=== PATIENT | male | born 1985 | race Caucasian/White ===

== ENCOUNTER 2019-01-14 04:33 | Emergency (ER) | payer OTHER ==
[~2019-01-14] VITALS: Ht 182.9 cm; Wt 81.2 kg
[2019-01-14 04:40] VITALS: BP 137/78
--- NOTE | 2019-01-14 04:40 | NUR ---
TO BED # 08 AMBULATORY , REPORT GIVEN TO MATHEW BUTT
--- NOTE | 2019-01-14 04:53 | NUR ---
33/M PRESENTS TO ED, C/O SOB X30 MINS WHILE DRIVING ON THE WAY TO WORK. PT STATED HE WAS DX PNA LAST WEEK, FINISHED RX Z-PACK. PT REPORTS NONPRODUCTIVE DRY COUGH. REPORTS NAUSEA, CHILLS, AND INSOMNIA. DENIES FEVER OR VOMITING. AOX4, GCS 15, SKIN NORMAL DRY AND INTACT, LUNG SOUNDS CLEAR BL. DENIES MED HX OR RX. OTC NYQUIL.
--- NOTE | 2019-01-14 04:53 | NUR ---
SPO2 98%, RR 18 EVEN AND SLIGHTLY LABORED, UNABLE TO SPEAK FULL SENTENCES. REPORTS L PLEURITIC CHEST PRESSURE RADIATING TO L UPPER BACK.
[2019-01-14] MEDS ORDERED: NACL 0.9% 1,000 ML IV ONE (05:20)
[2019-01-14] MEDS ORDERED: PIPERACILLIN/TAZOBACTAM 3.375 GM in DEXTROSE 5% 50 ML IV ONE (05:20)
[2019-01-14 05:24] LABS: BASOPHILS # (AUTO) 0.1 K/uL (0.00-0.22); BASOPHILS % (AUTO) 0.6 % (0.0-2.0); EOSINOPHILS # (AUTO) 0.8 K/uL (0-0.4); HEMATOCRIT 40.6 % (36-52); HEMOGLOBIN 13.5 g/dL (12.0-18.0); LYMPHOCYTES # (AUTO) 2.2 K/uL (2.0-11.5); LYMPHOCYTES % (AUTO) 17.2 % (20.5-51.1); MEAN CORPUSCULAR HEMOGLOBIN 29 pg (27-31); MEAN CORPUSCULAR HGB CONC 33 g/dL (33-37); MEAN CORPUSCULAR VOLUME 85.5 fL (80-94); MONOCYTES # (AUTO) 0.8 K/uL (0.8-1.0); MONOCYTES % (AUTO) 6.3 % (1.7-9.3); NEUTROPHILS # (AUTO) 8.8 K/uL (1.8-7.7); NEUTROPHILS % (AUTO) 69.9 % (42.2-75.2); PLATELET COUNT (AUTO) 283 K/uL (140-450); RED BLOOD CELL COUNT(AUTO) 4.75 MIL/uL (4.20-6.10); WHITE BLOOD COUNT (AUTO) 12.6 K/uL (4.8-10.8)
[2019-01-14 05:30] LABS: APPEARANCE,URINE CLEAR (CLEAR); BILIRUBIN,URINE NEGATIVE (NEGATIVE); BLOOD, URINE NEGATIVE (NEGATIVE); COLOR,URINE YELLOW (YELLOW); LEUKOCYTE ESTERASE ,URINE NEGATIVE (NEGATIVE); NITRITE, URINE NEGATIVE (NEGATIVE); PH,URINE 7.5 (5.0-9.0); UGLUCOSE NEGATIVE (NEGATIVE)
[2019-01-14] MEDS ORDERED: PIPERACILLIN/TAZOBACTAM 3.375 GM VIAL IV ONE (05:37)
[2019-01-14 05:44] LABS: ANION GAP 13.2 (8-16); CARBON DIOXIDE 27.6 mmol/L (21-32); CREATININE 1.2 mg/dL (0.7-1.3); POTASSIUM 3.8 mmol/L (3.5-5.1)
[2019-01-14 05:46] LABS: BARBITURATE, URINE NEG. ng/ml (NEG <=200); BENZODIAZEPINE, URINE NEG. ng/mL (NEG <=200); CANNABINOID, URINE NEG. ng/mL (NEG <=50); COCAINE, URINE NEG. ng/mL (NEG <=300); OPIATE, URINE NEG. ng/mL (NEG <=2000); PHENCYCLIDINE SCREEN,URINE NEG. ng/mL (NEG <=25)
[2019-01-14 05:59] LABS: ALBUMIN 3.6 g/dL (3.4-5.0); TOTAL BILIRUBIN 0.5 mg/dL (0.0-1.0)
[2019-01-14] MEDS ORDERED: NACL 0.9% 1,500 ML IV ONE (06:00)
[2019-01-14] MEDS ORDERED: VANCOMYCIN 1,000 MG in DEXTROSE 5% 250 ML IV ONE (06:05)
[2019-01-14] MEDS ORDERED: VANCOMYCIN 1,000 MG VIAL ONE (06:22)
[2019-01-14 06:23] LABS: RBC,URINE NONE SEEN /HPF (0-5); WBC,URINE 0-5 /HPF (0-5)
--- NOTE | 2019-01-14 06:25 | NUR ---
PT LAYING IN BED SEMIFOWLERS, AT BEDSIDE. VSS. PT DENIES ANY PAIN. RR EVEN AND UNLABORED. ALL NEEDS MET.
--- NOTE | 2019-01-14 06:57 | NUR ---
PT REQUESTING NOT TO BE TRANSFERRED TO [facility], PT MADE AWARE THAT IT IS HIS INSURANCE DECISION. PER INSOLE CEMENTER, [facility] WAS NOTIFIED OF PT REQUEST BUT IT IS NOT GUARANTEED, PT MADE AWARE.
--- NOTE | 2019-01-14 07:19 | NUR ---
[facility] AT BEDSIDE. PT'S VANCOMYCIN WITH 125ML REMAINING AND NS BOLUS 750ML REMAINING. PER ER MD, IT IS OK TO STOP VANCO AND NS BOLUS AT THIS TIME TO NOT DELAY TRANSPORT. REPORT GIVEN TO DAQUAN RAINES AND [facility].
[2019-01-14 07:26] VITALS: BP 124/73
--- NOTE | 2019-01-14 07:27 | NUR ---
Patient to be transferred to [facility]. Is being transferred due to PNA. Receiving facility has accepting physician and available space. ER physician has signed transfer form. Patient or responsible libertarian has agreed to transfer and signed form. Patient belongings inventoried and will be sent with patient. Copy of nursing notes, lab reports, EKG, Physicians Orders and X-rays to be sent with patient.
--- NOTE | 2019-01-14 07:31 | NUR ---
REPORT GIVEN TO DAQUAN SHETH AT [facility].
--- NOTE | 2019-01-18 12:28 | NUR ---
Zosyn IVPB completed at 0607. 0.9 NS IVPB 1000 ml completed at 0630. Late Entry
== END 2019-01-14 07:27 | disposition short-term general hospital (02) ==
LOC: MED 04:33
DX: A41.9 Sepsis, unspecified organism (principal); J18.1 Lobar pneumonia, unspecified organism; Z88.8 Allergy status to other drugs, medicaments and biological substances
CPT/HCPCS: 36415; 71045; 80053; 80305; 81001; 83605; 85025; 87040; 96365; 96367; 99291; J2543; J3370; Q0092